=== PATIENT | male | born 2000 | race Two or more races ===

== ENCOUNTER 2023-02-06 02:08 | Emergency (ER) | payer SELFPAY ==
[~2023-02-06] VITALS: Ht 172.7 cm; Wt 104.0 kg
[2023-02-06] MEDS ORDERED: CYCL-837 PO (05:26)
[2023-02-06] MEDS ORDERED: IBUP-1456 PO (05:26)
[2023-02-06 06:50] VITALS: BP 128/84
== END 2023-02-06 06:50 | disposition home or self-care (01) ==
LOC: ER 02:08
DX: S29.012A Strain of muscle and tendon of back wall of thorax, initial encounter (principal); V89.2XXA Person injured in unspecified motor-vehicle accident, traffic, initial encounter; Y93.89 Activity, other specified; Y92.411 Interstate highway as the place of occurrence of the external cause; Y99.8 Other external cause status
CPT/HCPCS: 72080